=== PATIENT | male | born 1940 | race American Indian/Alaskan Native ===

== ENCOUNTER 2020-02-07 11:11 | Emergency (ER) | payer MEDICARE ==
[2020-02-07 11:24] VITALS: BP 154/76
--- NOTE | 2020-02-07 11:31 | Emergency Department Report ---
ED General Adult HPI - General Chief complaint: Weakness Stated complaint: LEFT KNEE PAIN Time Seen by Provider: 02/07/20 11:30 Source: EMS Mode of arrival: Ambulatory Limitations: No Limitations - History of Present Illness Initial comments: 79-year-old male presents to ED with bilateral knee pain x2 weeks. Patient states left knee is worse than the right. Patient reports he is able to ambulate slightly but it is painful. States he has mostly been in bed for the past week. Denies history of gout or arthritis. Denies trauma. Denies lower leg pain. -: week(s) (2) Location: left, right, lower extremity Severity scale (0 -10): 10 Quality: aching Consistency: constant Improves with: immobilization Worsens with: movement Associated Symptoms: denies: chest pain, cough, fever/chills, shortness of breath Treatments Prior to Arrival: none - Related Data Previous Rx's Medication Instructions Recorded Last Taken Type traMADoL [Ultram] 50 mg PO Q6HR PRN #7 tablet 02/07/20 Unknown Rx Allergies Allergy/AdvReac Type Severity Reaction Status Date / Time No Known Allergies Allergy Unverified 02/07/20 12:56 ED Review of Systems ROS: Stated complaint: LEFT KNEE PAIN Other details as noted in HPI Comment: All other systems reviewed and negative Constitutional: denies: chills, fever Respiratory: denies: cough, shortness of breath Cardiovascular: denies: chest pain Musculoskeletal: joint swelling, arthralgia ED Past Medical Hx - Past Medical History Previous Medical History?: Yes Hx Hypertension: Yes Hx Diabetes: Yes - Surgical History Past Surgical History?: Yes Hx Cholecystectomy: Yes - Social History Smoking Status: Never Smoker Substance Use Type: None - Medications Home Medications: Home Medications Medication Instructions Recorded Confirmed Last Taken Type traMADoL [Ultram] 50 mg PO Q6HR PRN #7 tablet 02/07/20 Unknown Rx ED Physical Exam - General Limitations: No Limitations General appearance: alert, in no apparent distress - Head Head exam: Present: atraumatic, normocephalic - Eye Eye exam: Present: normal appearance, EOMI - ENT ENT exam: Present: mucous membranes moist - Neck Neck exam: Present: normal inspection - Respiratory Respiratory exam: Present: normal lung sounds bilaterally. Absent: respiratory distress - Cardiovascular Cardiovascular Exam: Present: normal rhythm, tachycardia - GI/Abdominal GI/Abdominal exam: Absent: distended - Extremities Exam Extremities exam: Present: other (tenderness to bilat knees, worse on left, with mild swelling to left knee). Absent: calf tenderness - Neurological Exam Neurological exam: Present: alert, oriented X3 - Psychiatric Psychiatric exam: Present: normal affect, normal mood - Skin Skin exam: Present: warm, dry, intact, normal color ED Course Vital Signs 02/07/20 02/07/20 02/07/20 11:19 12:07 12:57 Temperature 98.9 F Pulse Rate 105 H Respiratory 21 18 18 Rate Blood Pressure 154/76 Blood Pressure 154/76 [Right] O2 Sat by Pulse 96 98 Oximetry ED Medical Decision Making - Radiology Data Radiology results: report reviewed, image reviewed - Medical Decision Making - BLE US neg for DVT - bilat knee xrays negative - Differential Diagnosis arthritis, DVT, fracture, sprain Critical care attestation.: If time is entered above; I have spent that time in minutes in the direct care of this critically ill patient, excluding procedure time. ED Disposition Clinical Impression: Knee pain, bilateral Disposition: DC-01 TO HOME OR SELFCARE Is pt being admited?: No Condition: Stable Instructions: Arthralgia (ED) Additional Instructions: You may take motrin or tylenol for pain. If that does not help, I have written a prescription for ultram. Prescriptions: traMADoL [Ultram] 50 mg PO Q6HR PRN #7 tablet PRN Reason: Pain Referrals: RACHAEL STACY MD [Staff Physician] - 3-5 Days Time of Disposition: 12:57
[2020-02-07] MEDS ORDERED: IBUPROFEN 800 MG TAB PO ONE (11:41)
--- NOTE | 2020-02-07 12:45 | XRay Report ---
RIGHT KNEE 3 VIEWS INDICATION / CLINICAL INFORMATION: pain COMPARISON: None available. FINDINGS: BONES / JOINT(S): No acute fracture or subluxation. There is degenerative change involving all 3 comp artments. This is most severe in the patellofemoral compartment. There is chondrocalcinosis. SOFT TISSUES: There is subcutaneous edema LEFT KNEE 4 VIEWS INDICATION / CLINICAL INFORMATION: pain COMPARISON: None available. FINDINGS: BONES / JOINT(S): No acute fracture or subluxation. There is mild degenerative change involving all 3 compartments. There is chondrocalcinosis. SOFT TISSUES: There is an effusion in the suprapatella bursa. ADDITIONAL FINDINGS: Atherosclerotic calcifications are noted Signer Name: Shamar Ricketts MD Signed: 02/07/2020 12:41 PM Workstation Name: [id number]
--- NOTE | 2020-02-07 12:54 | Vascular Lab Report ---
BILATERAL LOWER EXTREMITY VENOUS DOPPLER ULTRASOUND HISTORY: pain, swelling COMPARISON: None. TECHNIQUE: Grayscale, color and spectral Doppler imaging of the venous system of the left lower extre mity was performed. FINDINGS: Greater saphenous vein: Normal venous flow, compressibility, and augmentation. Sapheno-femoral Junction: Normal venous flow, compressibility and augmentation. Common Femoral Vein: Normal venous flow, compressibility and augmentation. Femoral Vein: Normal venous flow, compressibility and augmentation. Profunda Femoral Vein: Popliteal Vein: Normal venous flow, compressibility and augmentation. Posterior tibial vein: Normal venous flow, compressibility and augmentation. Additional Findings: There is questionable fluid collection within the soft tissues posterior to the left knee. This is only seen on one image and it is unclear if this represents a large popliteal cyst . IMPRESSION: No sonographic evidence of deep venous thrombosis within the bilateral lower extremities. There is questionable fluid collection within the soft tissues posterior to the left knee. This is on ly seen on one image and it is unclear if this represents a large popliteal cyst. Recommend correlation with patient's history with consideration for targeted ultrasound if clinically indicated. Signer Name: Ubaldo Lyles MD Signed: 02/07/2020 12:50 PM Workstation Name: [id number]
== END 2020-02-07 15:50 | disposition home or self-care (01) ==
LOC: ED 11:11
DX: M25.561 Pain in right knee (principal); M25.562 Pain in left knee; I10 Essential (primary) hypertension; E11.9 Type 2 diabetes mellitus without complications; R22.43 Localized swelling, mass and lump, lower limb, bilateral
CPT/HCPCS: 93970; 99284